=== PATIENT | female | born 1980 | race Caucasian/White ===

== ENCOUNTER 2017-07-13 05:43 | Inpatient (IN) | payer BC ==
--- NOTE | 2017-07-12 10:51 | PDOC.LDHP ---
Labor and Delivery H&P Chief complaint: scheduled section HPI: Pt is a 37yo @ 39 weeks here for scheduled RCS and risk reducing salpingectomy for family history of female/gynecologic malignancies. Current gestational age (weeks): 39 Due date: 07/19/17 Dating criteria: last menstrual period Grav: 3 Para: 3 OB History Details: CD x 2 2013 twins 2016 mejia Abnormal US findings: No Current medications: pre-won vitamins Previous surgical history: low tranverse CS (x2) Allergies/Adverse Reactions: Allergies Allergy/AdvReac Type Severity Reaction Status Date / Time Sulfa (Sulfonamide Allergy Mild Verified 07/13/17 06:08 Antibiotics) Social history: none - Physical Exam Vital signs reviewed and normal: yes Abnormal vital signs: mild range BP General: resting Heart: RRR Lungs: nonlabored breathing Abdomen: gravid Extremeties: trace edema FHT: category 1 - OB Labs Blood type: O RH: positive Antibody Screen: negative HIV: negative RPR: negative HEPSAg: negative 1 hour GCT: positive 3 hour GTT: negative GBS: negative Urine drug screen: not done Rubella: immune - Assessment L&D Assessment: scheduled repeat section - Plan Plan: admit to L&D, to OR for section, informed consent obtained, anesthesia consult for pain management -: A/P: 37yo @ 39+ weeks here for scheduled repeat CS and risk reducing salpingectomy. Pt understands the risk and benefits of CS as well as RRS, and has verbalized understanding many times during our clinical encounters regarding the implications of permanent sterilization w RRS at the time of CS. Pt has reported many times that future fertility is not desired after the of this child. Declines OnQ pump.
[2017-07-13] MEDS ORDERED: Bicitra 30 ML UDCUP PO SCH (05:52)
[2017-07-13] MEDS ORDERED: CEFAZOLIN/Water 2 GM/20 ML SYRINGE SLOW IVP SCH (05:52)
[2017-07-13] MEDS ORDERED: Ondansetron HCl/PF 4 MG/2 ML Vial IVP PRN ×4 (05:52→11:41)
[2017-07-13] MEDS ORDERED: Promethazine HCl 25 MG/ML VIAL IM PRN ×3 (05:52→11:41)
[2017-07-13 06:17] VITALS: BMI 39.4
[2017-07-13 06:36] LABS: Hemoglobin 13.7 g/dL (12.0-16.0); Mean Corpuscular HGB CONC 35.4 g/dL (32.0-36.0); Mean Corpuscular Hemoglobin 30.5 pg (27.0-31.0); Mean Corpuscular Volume 86.2 fl (81.0-99.0); Mean Platelet Volume 9.9 fL (7.4-10.4); Platelet Count 191 thou/uL (130-400); RBC Distribution Width 13.1 % (11.5-14.5); Red Blood Cell (RBC) Count 4.48 mill/uL (4.20-5.40); White Blood Cell (WBC) Count 12.1 thou/uL (4.8-10.8)
[2017-07-13] MEDS: Lactated Ringer's 1,000 ML IV SCH ×3 (07:00→19:40)
[2017-07-13] MEDS ORDERED: Fentanyl 100 MCG/2 ML VIAL ONE (07:01)
[2017-07-13] MEDS ORDERED: Morphine PF 1 MG/ML SYR ONE (07:02)
[2017-07-13 07:03] LABS: Hep B Surf Ag Non-Reactive S/CO (NonReactive)
[2017-07-13] MEDS ORDERED: Oxytocin 10 UNITS/ML VIAL ONE ×2 (07:03→07:04)
[2017-07-13] MEDS ORDERED: ePHEDrine/0.9% NaCl/PF SYRINGE 50 mg/10 ml ONE ×3 (07:09→14:45)
[2017-07-13] MEDS ORDERED: Ondansetron HCl/PF 4 MG/2 ML Vial ONE ×2 (07:09→14:45)
[2017-07-13] MEDS ORDERED: Lidocaine 1% PF 5 ML VIAL ONE (07:10)
[2017-07-13] MEDS ORDERED: Promethazine HCl 25 MG/ML VIAL ONE (07:36)
[2017-07-13] MEDS ORDERED: Ketorolac Tromethamine 30 MG/ML VIAL ONE ×2 (07:37→14:45)
[2017-07-13] MEDS ORDERED: EPINEPHrine 1 MG/10 ML Abboject SYRINGE ONE (08:07)
[2017-07-13] MEDS ORDERED: Meperidine HCl/PF 25 MG/ML VIAL SLOW IVP PRN (08:41)
[2017-07-13] MEDS ORDERED: Naloxone HCl 0.4 mg/ml Vial IVP PRN ×2 (08:42)
[2017-07-13] MEDS ORDERED: Eucerin (Mineral Oil/Petrolatum,White) 30 gm Jar TOP PRN (08:42)
[2017-07-13] MEDS ORDERED: diphenhydrAMINE 50 MG/ML VIAL IVP PRN (08:42)
[2017-07-13] MEDS ORDERED: Naloxone HCl 0.4 mg/ml Vial IV PRN (08:42)
[2017-07-13] MEDS ORDERED: Promethazine HCl 25 MG SUPP PR PRN (08:42)
[2017-07-13] MEDS ORDERED: Ketorolac Tromethamine 30 MG/ML VIAL IVP SCH (08:45)
[2017-07-13] MEDS ORDERED: Communication Order-Pharmacy FS SCH (08:45)
[2017-07-13] MEDS ORDERED: diphenhydrAMINE 50 MG/ML VIAL ONE ×2 (10:07→14:45)
--- NOTE | 2017-07-13 10:16 | PDOC.OPDEL ---
OB Operative/Delivery Note Delivery Dr/Surgeon: Angelito Assist: Kike Pre-Delivery Diagnosis: scheduled section (and desires risk reducing salpingectomy) Procedure/Post Delivery Dx: repeat low transverse CS (and RRS) Weeks gestation: 39 Anesthesia: spinal - Findings A Sex: male - 1 min: 8 - 5 min: 9 - Additional Findings/Plan Placenta delivered: manual removal findings: low transverse hysterotomy without extension, normal uterus, normal tubes (transected), normal ovaries Estimated blood loss: 800ml Compilations/Other Findings: risk reducing salpingectomy completed
[2017-07-13] MEDS ORDERED: Simethicone Chewable 80 MG TAB PO PRN (11:41)
[2017-07-13] MEDS ORDERED: Bisacodyl 10 MG SUPP PR PRN (11:41)
[2017-07-13] MEDS ORDERED: LR w/ Pitocin 40 units/1000 ML BAG IV SCH (11:41)
[2017-07-13] MEDS ORDERED: Lanolin Ointment 7 GM TUBE TOP PRN (11:41)
[2017-07-13] MEDS ORDERED: diphenhydrAMINE 25 MG CAP PO PRN (11:41)
[2017-07-13] MEDS ORDERED: Prenatal Vitamin 1 TAB PO SCH (12:00)
[2017-07-13] MEDS ORDERED: Docusate Calcium (SURFAK) 240 MG CAP PO SCH (12:00)
[2017-07-13] MEDS ORDERED: Ferrous Sulfate 325 MG TAB PO SCH (12:00)
[2017-07-13] MEDS ORDERED: LR / Pitocin 40 units/1000 ml 1,000 ML IV SCH (12:00)
--- NOTE | 2017-07-13 14:32 | OP ---
DATE OF PROCEDURE: 07/13/2017 PREOPERATIVE DIAGNOSES: 1. Previous section x2. 2. 39-week gestation. 3. Family history of malignant neoplasm of the breast in mother and maternal grandmother, desires ri sk reducing salpingectomy. 4. Satisfied parity. PROCEDURES PERFORMED: Repeat low transverse section with bilateral salpingectomy. COMPLICATIONS: None. ESTIMATED BLOOD LOSS: 800 mL ANESTHESIA: Spinal per Dr. Knox. SURGEON: Jerry Eaton D.O. BREEDING MANAGER: Susie Stokes D.O. FINDINGS: 1. Low transverse hysterotomy without extension. 2. Normal appearing uterus, tubes, and ovaries bilaterally. 3. Vigorous male , Apgars 8 and 9, weight pending at the time of the dictation. 4. All surgical sites hemostatic. 5. No intra-abdominal adhesive disease PROCEDURE DETAILS: The patient was taken back to the OR with IV fluids running. Once she was in the OR, spinal anesthesia was obtained and the patient was then placed in dorsal supine position with a left lateral tilt. Arreola catheter was placed using sterile technique. SCDs were applied to lower ex tremities. Preoperative antibiotics had previously been administered and a timeout was completed. T he abdomen was prepped and draped in normal fashion for section. The abdomen was tested and anesthesia was found to be adequate. A Pfannenstiel skin incision was made with the scalpel. Skin incision was carried down through the subcutaneous tissue to the fascia. Once the fascia was reached , it was incised in the midline and extended superolaterally with curved Araujo scissors. Braxton clamp s were placed at the superior border of the fascia, which was bluntly dissected off the rectus abdomi nis muscles. In similar fashion, the fascia was grasped inferiorly and dissected down towards the pu bic symphysis. The muscles were in the midline. The peritoneum was bluntly entered and st retched laterally. Daniel O retractor was placed into the peritoneal cavity for retraction, visualiz ation, and protection of the wound. A bladder flap was created using Metzenbaum scissors and the katie dder flap was dissected away from the planned hysterotomy site. Low transverse hysterotomy was made with a scalpel. This was extended superolaterally using the Pearson maneuver. Amniotomy was performed with clear fluid. The was then delivered vertex through the incision without difficulty. The was vigorous immediately after delivery, the nose and mouth were suctioned. The cord was shelley monica clamped and cut, and the infant was handed to special care nurses in attendance. Cord blood was collected. The placenta was delivered. Uterus was exteriorized, massaged to firm, and cleared of cl ot, debris, and trailing membrane. After the uterus was cleaned with a dry sponge, the hysterotomy w as inspected with no extension noted. Hysterotomy was closed in a running lock suture of Monocryl wi th hemostasis noted after closure. After the hysterotomy was closed, attention was turned to the kristi pingectomy portion of the procedure. Beginning on the patient's right side, the fallopian tube was e levated with Dayhoit sutures away from the adnexa. The areas of mesosalpinx without vasculature to t he tube were opened with Bovie cauterization. The 2 vessels that were noted between the mesosalpinx and the fallopian tube were ligated with chromic suture and with cautery applied. Once the 2 small v essels were freed from the tube, it was completely transected and sent for pathologic review. In sim ilar fashion, the salpingectomy was performed on the left side. After the bilateral salpingectomy wa s performed, the dissection sites were inspected with no bleeding noted. The uterus was returned to the abdominal cavity. The hysterotomy and pericolic gutters were irrigated and suctioned dry. The s alpingectomy sites were inspected again and noted to be hemostatic. The Daniel O retractor was remov ed from the abdominal cavity. The muscle, belly, and fascia were inspected with no bleeding noted. The fascia was then reapproximated with PDS suture from [id number] and tied separately in the m idline. Subcutaneous tissue was copiously irrigated. A small area of superficial bleeding was noted in the left corner just below the skin. This bleeding was controlled with placement of chromic sutu re as well as Bovie cauterization. Once hemostasis was noted at the left corner of the incision, the subcutaneous tissue was reapproximated with chromic suture. The skin was closed with 4-0 Monocryl a nd then dressed with Dermabond dressing. The uterus was massaged and noted to be firm. The patient was clean, dry, and taken to recovery room in good condition.
[2017-07-13] MEDS: Ketorolac Tromethamine 30 MG/ML VIAL IVP PRN ×2 (14:45→21:03)
[2017-07-13] MEDS: Ferrous Sulfate 325 MG TAB PO SCH (19:20)
[2017-07-13] MEDS ORDERED: Meperidine HCl/PF 25 MG/ML VIAL IM PRN (20:45)
[2017-07-14] MEDS: Ketorolac Tromethamine 30 MG/ML VIAL IVP PRN (03:06)
[2017-07-14] MEDS: Lactated Ringer's 1,000 ML IV SCH (03:16)
[2017-07-14] MEDS: Docusate Calcium (SURFAK) 240 MG CAP PO SCH ×3 (06:12→21:35)
[2017-07-14 06:28] LABS: Hemoglobin 12.2 g/dL (12.0-16.0); Mean Corpuscular HGB CONC 34.1 g/dL (32.0-36.0); Mean Corpuscular Hemoglobin 30.2 pg (27.0-31.0); Mean Corpuscular Volume 88.5 fl (81.0-99.0); Mean Platelet Volume 9.3 fL (7.4-10.4); Platelet Count 189 thou/uL (130-400); RBC Distribution Width 13.3 % (11.5-14.5); Red Blood Cell (RBC) Count 4.04 mill/uL (4.20-5.40); White Blood Cell (WBC) Count 11.9 thou/uL (4.8-10.8)
--- NOTE | 2017-07-14 07:47 | PRG ---
DATE OF SERVICE: 07/14/2017 PRIMARY OBTETRICIAN: Dr. Jerry Eaton SUBJECTIVE: The patient is a 37-year-old postop day #1 status post repeat with a bilateral salpingectomy for risk reduction. The patient had her Arreola pulled this morning and is yet to void. She is ambulating, tolerating p.o., and having good pain control at this time. OBJECTIVE: VITAL SIGNS: This morning, blood pressure 104/54, temperature 97.9, pulse of 80, respiratory rate of 20. GENERAL: She appears to be in no acute distress. She is alert and oriented, cooperative and pleasan t to interact with. HEENT: Head is normocephalic, atraumatic. ABDOMEN: Soft and nontender. Fundus is firm. Her incision is clean and dry and intact with suture and is bandaged. EXTREMITIES: Nontender, nonedematous. ASSESSMENT AND PLAN: The patient is postoperative day 1, status post a repeat section here for routine postoperative care. Anticipate discharge on Sunday.
[2017-07-14] MEDS: Prenatal Vitamin 1 TAB PO SCH (09:52)
[2017-07-14] MEDS: Ferrous Sulfate 325 MG TAB PO SCH ×2 (09:54→21:16)
[2017-07-14] MEDS: Acetaminophen/Codeine 30-300mg Tablet PO PRN ×2 (09:54→19:29)
[2017-07-14] MEDS: Ibuprofen 800 MG TAB PO SCH ×2 (14:39→21:35)
[2017-07-15] MEDS: Acetaminophen/Codeine 30-300mg Tablet PO PRN ×5 (04:16→19:28)
[2017-07-15] MEDS: Ibuprofen 800 MG TAB PO SCH ×3 (06:30→21:08)
[2017-07-15] MEDS: Prenatal Vitamin 1 TAB PO SCH (08:04)
[2017-07-15] MEDS: Docusate Calcium (SURFAK) 240 MG CAP PO SCH ×2 (08:04→21:08)
[2017-07-15] MEDS: Ferrous Sulfate 325 MG TAB PO SCH ×2 (08:05→14:56)
[2017-07-16] MEDS: Acetaminophen/Codeine 30-300mg Tablet PO PRN ×3 (00:40→12:07)
[2017-07-16] MEDS: Ibuprofen 800 MG TAB PO SCH (06:29)
[2017-07-16] MEDS: Ferrous Sulfate 325 MG TAB PO SCH (07:31)
[2017-07-16 08:19] VITALS: BP 118/57; TEMP 98.2
[2017-07-16] MEDS: Docusate Calcium (SURFAK) 240 MG CAP PO SCH (08:51)
[2017-07-16] MEDS: Prenatal Vitamin 1 TAB PO SCH (08:51)
--- NOTE | 2017-07-16 09:06 | PDOC.PP ---
Post Progress Note Post Day #: 3 Subjective: breast feeding well, min lochia and discomfort PO intake tolerated: yes Flatus: yes Ambulation: yes Vital Signs (12 hours) Temp Pulse Resp BP 07/16/17 07:53 98.2 F 75 16 118/57 L 07/16/17 00:46 77 120/63 Weight Weight 230 lb - Physical Examination General: NAD Cardiovascular: no m/r/g Respiratory: non-labored breathing Abdominal: no distention Extremities: negative homans (B) Skin: CS incision dry & intact (area of light erythema/contact dermatitis suspected from tape) Psychiatric: normal affect Result Diagrams: 07/14/17 05:45 Additional Labs: Post Labs Blood Type O POSITIVE 07/13/17 06:26 Hep Bs Antigen Non-Reactive S/CO (NonReactive) 07/13/17 06:26 (1) 39 weeks gestation of Code(s): Z3A.39 - 39 WEEKS GESTATION OF Status: Acute (2) Previous delivery affecting , delivered Code(s): O34.219 - MATERNAL CARE FOR UNSP TYPE SCAR FROM PREVIOUS DEL Status: Acute - Assessment/Plan POD3 sp RCS and RRS. DC home today.
== END 2017-07-16 12:48 | disposition home or self-care (01) | DRG 766 ==
LOC: L&D 05:43 → 3SW 12:09
PROVIDERS: ADMIT Obstetrics & Gynecology; ATTEND Obstetrics & Gynecology
PROC: 10D00Z1 Extraction of Products of Conception, Low, Open Approach (ICD-10-PCS; principal; 2017-07-13)
PROC: 0UB70ZZ Excision of Bilateral Fallopian Tubes, Open Approach (ICD-10-PCS; 2017-07-13)
DX: O34.211 Maternal care for low transverse scar from previous cesarean delivery (principal); N85.8 Other specified noninflammatory disorders of uterus; Z3A.39 39 weeks gestation of pregnancy; Z37.0 Single live birth
CPT/HCPCS: 36415; 51702; 85027; 86850; 86900; 86901; 87340; 88302; J0171; J1200; J1885; J2001; J2274; J2405; J2550; J2590; J3010